=== PATIENT | male | born 1945 | race Caucasian/White ===

== ENCOUNTER 2020-12-14 21:21 | Emergency (ER) | payer MEDICARE, OTHER ==
--- NOTE | 2020-12-14 23:31 | EDPHYS ---
Physician Documentation [facility] Name: Toni Aguirre Age: 75 yrs Sex: Male : 1945 Arrival Date: 12/14/2020 Time: 21:22 Bed 16 Private MD: Ned Davis T ED Physician David Smith HPI: 12/14 23:33 This 75 yrs old Male presents to ER via Ambulatory with complaints of FISH pm1 HOOK IN FINGER. 23:33 Onset: The symptoms/episode began/occurred just prior to arrival, today. Associated pm1 signs and symptoms: Pertinent negatives: numbness tingling to finger. Decreased range of motion. Modifying factors: The patient symptoms are alleviated by nothing, the patient symptoms are aggravated by movement. The patient has not experienced similar symptoms in the past. The patient has not recently seen a physician. Fishing for [place] in [place]. Accidentally hooked finger while removing the fish from the hook. Historical: - Allergies: 22:05 PENICILLINS; em - PMHx: 22:05 colon cancer; Hyperlipidemia; Hypertension; em - PSHx: 22:05 colon resection; em - Immunization history:: Adult Immunizations not up to date. - Social history:: Smoking status: Patient denies any tobacco usage or history of. ROS: 23:33 Constitutional: Negative for fever, chills, and weight loss. pm1 23:33 Cardiovascular: Negative for chest pain, palpitations, and edema, Respiratory: Negative for shortness of breath, cough, wheezing, and pleuritic chest pain. 23:33 MS/extremity: Positive for puncture, of the left index finger, Negative for decreased range of motion, deformity. 23:33 Skin: Positive for puncture, of the left index finger. 23:33 All other systems are negative. Exam: 23:33 Constitutional: This is a well developed, well nourished patient who is awake, alert, pm1 and in no acute distress. Head/Face: Normocephalic, atraumatic. 23:33 Eyes: Exam is negative for acute changes, Extraocular movements: intact throughout, Conjunctiva: no acute changes, no injection. 23:33 ENT: Exam is negative for acute changes, Mouth: Lips: normal, Oral mucosa: normal, pink and intact, moist. 23:33 Cardiovascular: Exam negative for acute changes, Rate: normal, Rhythm: regular, Pulses: no pulse deficits are appreciated. 23:33 Respiratory: Exam negative for acute changes, respiratory distress, shortness of breath. 23:33 Musculoskeletal/extremity: Extremities: grossly normal except: noted in the left index finger: puncture, There is no evidence of decreased ROM, deformity, ROM: full active range of motion, in the left hand and left index finger, Circulation is intact in all extremities. the left hand and left index finger Sensation intact. 23:33 Skin: Appearance: normal except for affected area, injury, puncture(s), of the left index finger. 23:33 Neuro: Exam negative for acute changes, Orientation: is normal, Motor: is normal, moves all fours. Vital Signs: 22:02 BP 183 / 58; Pulse 62; Resp 16; Temp 97.7; Pulse Ox 99% on R/A; Weight 104.33 kg; em Height 6 ft. 0 in. (182.88 cm); Pain 0/10; 22:14 BP 167 / 70; Pulse 58; Resp 16 S; Pulse Ox 98% on R/A; Pain 0/10; bb 23:10 BP 137 / 71; Pulse 55; Resp 14 S; Pulse Ox 96% on R/A; bb 22:02 Body Mass Index 31.19 (104.33 kg, 182.88 cm) em Procedures: 23:53 Foreign Body Removal: a fishhook, from the left left index finger, by hook pushed pm1 through and brent cut. Dressinx4s were used to dress the wound, The patient tolerated the removal well. MDM: 22:57 Patient medically screened. pm1 23:30 Data reviewed: vital signs. Data interpreted: Pulse oximetry: on room air is 96 %. pm1 Interpretation: normal. Counseling: I had a detailed discussion with the patient and/or guardian regarding: the historical points, exam findings, and any diagnostic results supporting the discharge/admit diagnosis, radiology results, the need for outpatient follow up, a hand specialist, to return to the emergency department if symptoms worsen or persist or if there are any questions or concerns that arise at home. Administered Medications: 23:30 Drug: Lidocaine (1 %) 5 ml {Note: adminstered by Quan Beavers NP to affected area.} bb Volume: 5 ml; Route: Infiltration; 23:53 Follow up: Response: No adverse reaction bb 23:50 Drug: Tetanus-Diphtheria Toxoid Adult 0.5 ml {Program Control Analyst: [employer]. Exp: bb 08/21/2022. Lot #: [id number]. } Route: IM; Site: right deltoid; 23:54 Follow up: Response: No adverse reaction bb 23:50 Drug: Doxycycline 100 mg Route: PO; bb 23:54 Follow up: Response: No adverse reaction bb Disposition: 12/14/20 23:31 Discharged to Home. Impression: Puncture wound with foreign body of left index finger without damage to nail. - Condition is Stable. - Discharge Instructions: Puncture Wound. - Prescriptions for Doxycycline Hyclate 100 mg Oral Tablet - take 1 tablet by ORAL route every 12 hours; 20 tablet. - Medication Reconciliation Form, Thank You Letter, Antibiotic Education, Prescription Opioid Use form. - Follow up: Emergency Department; When: As needed; Reason: Worsening of condition. Follow up: Private Physician; When: 2 - 3 days; Reason: Recheck today's complaints, Continuance of care, Re-evaluation by your physician. Follow up: Mayco Hanson MD; When: 2 - 3 days; Reason: Recheck today's complaints, Continuance of care, Re-evaluation by your physician. - Problem is new. - Symptoms have improved. Addendum: 12/15/2020 08:13 Co-signature as Attending Physician, David Smith MD. p preston Signatures: David Smith MD MD pkl Munoz, Edgar RN Sandi Daniel RN RN bb Marinas, Patrick, JUAN RAMON GRINDER SET UP OPERATOR GEAR TOOL pm1 Corrections: (The following items were deleted from the chart) 12/14 23:57 23:31 12/14/2020 23:31 Discharged to Home. Impression: Puncture wound with foreign body bb of left index finger without damage to nail. Condition is Stable. Forms are Medication Reconciliation Form, Thank You Letter, Antibiotic Education, Prescription Opioid Use. Follow up: Emergency Department; When: As needed; Reason: Worsening of condition. Follow up: Private Physician; When: 2 - 3 days; Reason: Recheck today's complaints, Continuance of care, Re-evaluation by your physician. Follow up: Mayco Hanson; When: 2 - 3 days; Reason: Recheck today's complaints, Continuance of care, Re-evaluation by your physician. Problem is new. Symptoms have improved. pm1
--- NOTE | 2020-12-14 23:31 | ER ---
Nurse's Notes [facility] Name: Toni Aguirre Age: 75 yrs Sex: Male : 1945 Arrival Date: 12/14/2020 Time: 21:22 Bed 16 Private MD: Ned Davis T Diagnosis: Puncture wound with foreign body of left index finger without damage to nail Presentation: 12/14 22:02 Chief complaint: Patient states: was fishing and had fish hook go thru the LEFT index em finger, tetanus shot was 6 years ago. Coronavirus screen: Client denies travel out of the [place] in the last 14 days. Ebola Screen: Patient negative for fever greater than or equal to 101.5 degrees Fahrenheit, and additional compatible Ebola Virus Disease symptoms Patient denies exposure to infectious person. Patient denies travel to an Ebola-affected area in the 21 days before illness onset. No symptoms or risks identified at this time. Initial Sepsis Screen: Does the patient meet any 2 criteria? Does the patient have a suspected source of infection? No. Patient's initial sepsis screen is negative. Risk Assessment: Do you want to hurt yourself or someone else? Patient reports no desire to harm self or others. Onset of symptoms was December 14, 2020. 22:02 Method Of Arrival: Ambulatory em 22:02 Acuity: ERICA 4 em Historical: - Allergies: 22:05 PENICILLINS; em - PMHx: 22:05 colon cancer; Hyperlipidemia; Hypertension; em - PSHx: 22:05 colon resection; em - Immunization history:: Adult Immunizations not up to date. - Social history:: Smoking status: Patient denies any tobacco usage or history of. Screenin:14 Abuse screen: Denies threats or abuse. Nutritional screening: No deficits noted. bb Tuberculosis screening: No symptoms or risk factors identified. Fall Risk None identified. Assessment: 22:14 General: Appears in no apparent distress. Behavior is calm, cooperative. Pain: Denies bb pain. Neuro: Level of Consciousness is awake, alert, obeys commands, Oriented to person, place, time, situation. Cardiovascular: No deficits noted. Respiratory: Respiratory effort is even, unlabored, Respiratory pattern is regular. GI: No signs and/or symptoms were reported involving the gastrointestinal system. Derm: Skin is pink, warm \T\ dry. Musculoskeletal: Circulation, motion, and sensation intact. Reports fishhook in left forefinger. 23:10 Reassessment: No changes from previously documented assessment. pt awaiting ED provider bb evaluation. 23:30 Reassessment: Quan Beavers SLEEVE TURNER at bedside for removal of fishhook pt tolerated bb procedure well and verbalized understanding of and agrees to plan of care discharge instructions given pt ambulated with steady gait to exit accompanied by spouse. Vital Signs: 22:02 BP 183 / 58; Pulse 62; Resp 16; Temp 97.7; Pulse Ox 99% on R/A; Weight 104.33 kg; em Height 6 ft. 0 in. (182.88 cm); Pain 0/10; 22:14 BP 167 / 70; Pulse 58; Resp 16 S; Pulse Ox 98% on R/A; Pain 0/10; bb 23:10 BP 137 / 71; Pulse 55; Resp 14 S; Pulse Ox 96% on R/A; bb 22:02 Body Mass Index 31.19 (104.33 kg, 182.88 cm) em ED Course: 21:22 Patient arrived in ED. es 21:22 Ned Davis MD is Private Physician. es 22:04 Triage completed. em 22:05 Arm band placed on. em 22:14 Sandi Mercado, MAJOR is Primary Nurse. bb 22:14 Patient has correct armband on for positive identification. Bed in low position. Call bb light in reach. Adult w/ patient. Pulse ox on. NIBP on. 22:36 David Smith MD is Attending Physician. pkl 22:57 [facility]. pm1 22:57 David Smith MD is Attending Physician. pm1 23:31 Mayco Hanson MD is Referral Physician. pm1 23:56 removal of fishhook from left forefinger. Patient did not have IV access during this bb emergency room visit. Dressings: Band aid triple antibiotic ointment applied. 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 Exp: bb 08/21/2022. Lot #: [id number]. } Route: IM; Site: right deltoid; 23:54 Follow up: Response: No adverse reaction bb 23:50 Drug: Doxycycline 100 mg Route: PO; bb 23:54 Follow up: Response: No adverse reaction bb Outcome: 23:31 Discharge ordered by . pm1 23:57 Discharged to home ambulatory, with family. bb 23:57 Condition: stable 23:57 Discharge instructions given to patient, Instructed on discharge instructions, follow up and referral plans. medication usage, wound care, Demonstrated understanding of instructions, follow-up care, medications, wound care, Prescriptions given X 1. 23:57 Patient left the ED. bb Signatures: David Smith MD MD pkl Salyer, Edna es Munoz, Edgar, RN RN Sandi Rodriguez RN RN Quan Pitt, JUAN RAMON SLEEVE TURNER pm1
[2020-12-14] MEDS ORDERED: LIDOCAINE 1% MPF 5 ML VIAL ONE (23:37)
[2020-12-15] MEDS ORDERED: DOXYCYCLINE 100 MG CAP PO ONE (00:03)
[2020-12-15] MEDS ORDERED: TETANUS & DIPHTHERIA TOX,ADULT 0.5 ML VIAL ONE (00:03)
[2020-12-15 00:32] VITALS: TEMP 97.7
[2020-12-15 00:35] VITALS: BP 137/71; O2SAT 96
== END 2020-12-14 23:57 | disposition home or self-care (01) ==
LOC: ER 21:21
DX: S61.241A Puncture wound with foreign body of left index finger without damage to nail, initial encounter (principal); I10 Essential (primary) hypertension; Z23 Encounter for immunization; Z88.0 Allergy status to penicillin
CPT/HCPCS: 90471; 99283

== ENCOUNTER 2021-10-26 18:17 | Emergency (ER) | payer OTHER ==
[2021-10-26 19:02] LABS: Hematocrit 42.1 % (39.6-49.0); Lymphocytes % 35.2 % (15.3-44.8); MPV 8.8 fL (7.6-11.3); RBC Red Blood Cell Count 4.57 M/uL (4.33-5.43)
[2021-10-26 19:06] LABS: Protime INR 1.08
[2021-10-26 19:20] LABS: Potassium 3.7 mmol/L (3.5-5.1); Troponin High Sensitivity 5.5 pg/mL (<58.9)
--- NOTE | 2021-10-26 20:06 | RAD REPORT ---
EXAM DESCRIPTION: RAD - Chest Single View - 10/26/2021 8:01 pm CLINICAL HISTORY: dizzy Chest pain. COMPARISON: Chest Single View dated 12/13/2015; CHEST PA AND LAT 2 VIEW dated 10/01/2007 FINDINGS: Portable technique limits examination quality. The lungs are grossly clear. The heart is normal in size. No displaced fractures. IMPRESSION: No acute intrathoracic process suspected.
--- NOTE | 2021-10-26 20:10 | RAD REPORT ---
EXAM DESCRIPTION: CT - Head Brain Wo Cont - 10/26/2021 8:02 pm CLINICAL HISTORY: sudden onset dizziness/vertigo Headache, drowsiness COMPARISON: Head Brain Wo Cont dated 12/13/2015 TECHNIQUE: All CT scans are performed using dose optimization technique as appropriate and may inclu de automated exposure control or mA/KV adjustment according to patient size. FINDINGS: No intracranial hemorrhage, hydrocephalus or extra-axial fluid collection.No areas of brai n edema or evidence of midline shift. Chronic sphenoid sinusitis is present. The calvarium is intact. IMPRESSION: No acute intracranial abnormality.
--- NOTE | 2021-10-26 20:40 | ER ---
Nurse's Notes [facility] Name: Toni Aguirre Age: 76 yrs Sex: Male : 1945 Arrival Date: 10/26/2021 Time: 18:20 Bed 2 Private MD: Ned Davis T Diagnosis: Other peripheral vertigo Presentation: 10/26 18:33 Ebola Screen: Patient denies travel to an Ebola-affected area in the 21 days before ll1 illness onset. 18:33 Acuity: ERICA 3 ll1 18:38 Chief complaint: Patient states: I started having vertigo 45min PULLER THROUGH. It worsens when I jb4 stand up. Coronavirus screen: At this time, the client does not indicate any symptoms associated with coronavirus-19. Initial Sepsis Screen: Does the patient meet any 2 criteria? No. Patient's initial sepsis screen is negative. Does the patient have a suspected source of infection? No. Patient's initial sepsis screen is negative. Risk Assessment: Do you want to hurt yourself or someone else? Patient reports no desire to harm self or others. Onset of symptoms was October 26, 2021. Transition of care: patient was not received from another setting of care. 18:38 Method Of Arrival: Wheelchair jb4 Historical: - Allergies: 18:32 PENICILLINS; ll1 - PMHx: 18:32 colon cancer; Hyperlipidemia; Hypertension; ll1 - Immunization history:: Client reports receiving the 2nd dose of the Covid vaccine. - Social history:: Smoking status: Patient denies any tobacco usage or history of. - Family history:: not pertinent. - Hospitalizations: : No recent hospitalization is reported. Screenin:03 Abuse screen: Denies threats or abuse. Nutritional screening: No deficits noted. ll1 Tuberculosis screening: No symptoms or risk factors identified. 21:37 Fall Risk None identified. al4 Assessment: 18:40 General: Appears in no apparent distress. Behavior is cooperative, appropriate for age. ll1 Pain: Denies pain. Neuro: Reports dizziness. 21:00 General: Appears in no apparent distress. comfortable, Behavior is calm, cooperative, al4 denies dizziness at this time . Pain: Denies pain. Neuro: Level of Consciousness is awake, alert, obeys commands, Oriented to person, place, time, situation, Speech is normal, Facial symmetry appears normal. Cardiovascular: Capillary refill < 3 seconds Patient's skin is warm and dry. Respiratory: Airway is patent Respiratory effort is unlabored, Respiratory pattern is regular, symmetrical. GI: No signs and/or symptoms were reported involving the gastrointestinal system. : No signs and/or symptoms were reported regarding the genitourinary system. EENT: No signs and/or symptoms were reported regarding the EENT system. Derm: No signs and/or symptoms reported regarding the dermatologic system. Musculoskeletal: Circulation, motion, and sensation intact. patient ambulating well. Vital Signs: 18:38 BP 180 / 76; Pulse 51; Resp 16; Pulse Ox 100% on R/A; Weight 92.99 kg (R); Height 6 ft. jb4 0 in. (182.88 cm) (R); Pain 0/10; 21:36 BP 147 / 62; Pulse 54; Resp 16 S; Pulse Ox 98% on R/A; al4 18:38 Body Mass Index 27.80 (92.99 kg, 182.88 cm) jb4 ED Course: 18:20 Patient arrived in ED. mr 18:20 Ned Davis MD is Private Physician. mr 18:32 Jaime Willett, MAJOR is Primary Nurse. ll1 18:32 Arm band placed on Patient placed in an exam room, on a stretcher. ll1 18:33 Triage completed. ll1 18:45 Inserted saline lock: 20 gauge in right antecubital area, using aseptic technique. ll1 19:00 Richar Piper MD is Attending Physician. rn 19:03 Patient has correct armband on for positive identification. Bed in low position. Call ll1 light in reach. Side rails up X 1. Client placed on continuous cardiac and pulse oximetry monitoring. NIBP monitoring applied. 20:03 XRAY Chest (1 view) In Process Unspecified. EDMS 20:03 CT Head Brain wo Cont In Process Unspecified. EDMS 21:36 No provider procedures requiring assistance completed. IV discontinued, intact, al4 bleeding controlled, No redness/swelling at site. Pressure dressing applied. Administered Medications: No medications were administered Outcome: 20:40 Discharge ordered by MD. rn 21:36 Discharged to home ambulatory, with family. al4 21:36 Condition: stable 21:36 Discharge instructions given to patient, family, Instructed on discharge instructions, follow up and referral plans. medication usage, Demonstrated understanding of instructions, follow-up care, medications, Prescriptions given X 2. 21:37 Patient left the ED. al4 Signatures: Dispatcher [employer] Sierra Gutierrez Roman, MD MD rn Bryson, James, RN RN jb4 Jaime Willett RN RN ll1 Bairon Prieto4
--- NOTE | 2021-10-26 20:40 | EDPHYS ---
Physician Documentation [facility] Name: Toni Aguirre Age: 76 yrs Sex: Male : 1945 Arrival Date: 10/26/2021 Time: 18:20 Bed 2 Private MD: Ned Davis T ED Physician Richar Piper HPI: 10/26 20:23 This 76 yrs old Male presents to ER via Wheelchair with complaints of Vertigo. rn 20:23 The patient presents with dizziness, vertigo. Onset: The symptoms/episode rn began/occurred today. Modifying factors: The symptoms are alleviated by holding head still, valium, the symptoms are aggravated by movement of head, standing up, changing position. Associated signs and symptoms: Pertinent negatives: abdominal pain, chest pain, focal weakness, seizure, shortness of breath, syncope. Severity of symptoms: At their worst the symptoms were moderate in the emergency department the symptoms have improved. The patient has experienced similar episodes in the past. The patient has not recently seen a physician. Pt reports "vertigo again", has had vertigo now 5 times, no focal neurological complaints. Reports identical to previous episodes. Took valium prior to arrival and feels much better. NO headache. NO chest pain or palpitations. No syncope. Currently denies dizziness. . Historical: - Allergies: 18:32 PENICILLINS; ll1 - PMHx: 18:32 colon cancer; Hyperlipidemia; Hypertension; ll1 - Immunization history:: Client reports receiving the 2nd dose of the Covid vaccine. - Social history:: Smoking status: Patient denies any tobacco usage or history of. - Family history:: not pertinent. - Hospitalizations: : No recent hospitalization is reported. ROS: 20:23 Constitutional: Negative for fever, chills, and weight loss, Eyes: Negative for injury, rn pain, redness, and discharge, Neck: Negative for injury, pain, and swelling, Cardiovascular: Negative for chest pain, palpitations, and edema, Respiratory: Negative for shortness of breath, cough, wheezing, and pleuritic chest pain, Abdomen/GI: Negative for abdominal pain, diarrhea, and constipation, Back: Negative for injury and pain, MS/Extremity: Negative for injury and deformity, Skin: Negative for injury, rash, and discoloration, Neuro: Negative for headache, weakness, numbness, tingling, and seizure. Exam: 20:23 Constitutional: This is a well developed, well nourished patient who is awake, alert, rn and in no acute distress. Head/Face: Normocephalic, atraumatic. Eyes: Pupils equal round and reactive to light, extra-ocular motions intact. Periorbital areas with no swelling, redness, or edema. Cardiovascular: Braadycardic, regular. No pulse deficits. Respiratory: No increased work of breathing, no retractions or nasal flaring. Abdomen/GI: Soft, non-tender Skin: Warm, dry MS/ Extremity: Pulses equal, no cyanosis. Neuro: Awake and alert, GCS 15, oriented to person, place, time, and situation. Cranial nerves II-XII grossly intact. Motor strength 5/5 in all extremities. Sensory grossly intact. Cerebellar exam normal. Vital Signs: 18:38 BP 180 / 76; Pulse 51; Resp 16; Pulse Ox 100% on R/A; Weight 92.99 kg (R); Height 6 ft. jb4 0 in. (182.88 cm) (R); Pain 0/10; 21:36 BP 147 / 62; Pulse 54; Resp 16 S; Pulse Ox 98% on R/A; al4 18:38 Body Mass Index 27.80 (92.99 kg, 182.88 cm) jb4 MDM: 19:00 Patient medically screened. rn 20:23 Differential diagnosis: cardiac arrhythmia, generalized weakness, hypovolemia, rn idiopathic dizziness, TIA, vertigo. Data reviewed: vital signs, nurses notes, lab test result(s), EKG, radiologic studies, CT scan, and as a result, I will discharge patient. Counseling: I had a detailed discussion with the patient and/or guardian regarding: the historical points, exam findings, and any diagnostic results supporting the discharge/admit diagnosis, lab results, radiology results, the need for outpatient follow up, to return to the emergency department if symptoms worsen or persist or if there are any questions or concerns that arise at home. Response to treatment: the patient's symptoms have markedly improved after treatment, and as a result, I will discharge patient. Special discussion: I discussed with the patient/guardian in detail that at this point there is no indication for admission to the hospital. It is understood, however, that if the symptoms persist or worsen the patient needs to return immediately for re-evaluation. Based on the history and exam findings, there is no indication for further emergent testing or inpatient evaluation. I discussed with the patient/guardian the need to see the primary care provider for further evaluation of the symptoms. ED course: No acute findings in evaluation, marked improvement after valium, will dc home with prn zofran/meclizine. . 10/26 18:53 Order name: Basic Metabolic Panel; Complete Time: 20:12 [facility] 10/26 18:53 Order name: CBC with Diff; Complete Time: 19:20 [facility] 10/26 18:53 Order name: PT-INR; Complete Time: 19:20 [facility] 10/26 18:53 Order name: Troponin HS; Complete Time: 20:12 [facility] 10/26 18:53 Order name: XRAY Chest (1 view); Complete Time: 20:12 [facility] 10/26 19:22 Order name: CT Head Brain wo Cont; Complete Time: 20:12 rn 10/26 18:53 Order name: EKG; Complete Time: 18:53 [facility] 10/26 18:53 Order name: Cardiac monitoring; Complete Time: 18:53 [facility] 10/26 18:53 Order name: EKG - Nurse/Tech; Complete Time: 18:53 [facility] 10/26 18:53 Order name: IV Saline Lock; Complete Time: 18:53 [facility] 10/26 18:53 Order name: Labs collected and sent; Complete Time: 18:53 1 10/26 18:53 Order name: O2 Per Protocol; Complete Time: 18:53 [facility] 10/26 18:53 Order name: O2 Sat Monitoring; Complete Time: 18:53 ll1 Administered Medications: No medications were administered Disposition Summary: 10/26/21 20:40 Discharge Ordered Location: Home rn Problem: an acute exacerbation rn Symptoms: have improved rn Condition: Stable rn Diagnosis - Other peripheral vertigo rn Followup: rn - With: Private Physician - When: As needed - Reason: Recheck today's complaints, Re-evaluation by your physician Discharge Instructions: - Discharge Summary Sheet rn - Vertigo rn Forms: - Medication Reconciliation Form rn - Thank You Letter rn - Antibiotic corporate attorney - Prescription Opioid Use rn Prescriptions: - Meclizine 25 mg Oral Tablet - take 1 tablet by ORAL route every 8 hours As needed; 30 tablet; Refills: 0, rn Product Selection Permitted - ondansetron 4 mg Oral tablet,disintegrating - take 1 tablet by ORAL route every 8 hours As needed; 15 tablet; Refills: 0, rn Product Selection Permitted Signatures: Dispatcher [employer] Richar Cowan MD MD rn BrennonJaime RN RN ll1
[2021-10-26 22:10] VITALS: BP 147/62; O2SAT 98
--- NOTE | 2021-10-27 07:30 | EKG ---
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
== END 2021-10-26 21:37 | disposition home or self-care (01) ==
LOC: ER 18:17
DX: H81.399 Other peripheral vertigo, unspecified ear (principal); I10 Essential (primary) hypertension; Z85.038 Personal history of other malignant neoplasm of large intestine; Z88.0 Allergy status to penicillin
CPT/HCPCS: 36415; 70450; 71045; 80048; 84484; 85025; 85610; 93005; 99283

== ENCOUNTER 2021-12-10 12:35 | Inpatient (IN) | payer OTHER ==
[2021-12-10] MEDS ORDERED: NA CHLORIDE 0.9% 1,000 ML ONE (13:50)
[2021-12-10] MEDS ORDERED: ONDANSETRON 4 MG/2 ML VIAL ONE (13:50)
[2021-12-10] MEDS ORDERED: MORPHINE 4 MG/ML SYR ONE (13:50)
[2021-12-10 13:51] LABS: Absolute Lymphocytes (CBC) 2.8 K/uL (0.7-4.9); Hematocrit 45.9 % (39.6-49.0); Lymphocytes % 25.2 % (15.3-44.8); MCV 91.3 fL (80-100); MPV 8.4 fL (7.6-11.3); RBC Red Blood Cell Count 5.03 M/uL (4.33-5.43)
[2021-12-10 14:13] LABS: Albumin 4.1 g/dL (3.4-5.0); Bilirubin Direct 0.2 mg/dL (0-0.2); Bilirubin Total 0.9 mg/dL (0.2-1.0); Potassium 3.8 mmol/L (3.5-5.1)
--- NOTE | 2021-12-10 14:20 | RAD REPORT ---
EXAM DESCRIPTION: RAD - Chest Single View - 12/10/2021 1:40 pm CLINICAL HISTORY: PAIN COMPARISON: Portable 10/26/2021 TECHNIQUE: AP portable chest image was obtained 12/10/2021 1:40 pm . FINDINGS: No new mass or consolidation. Chronic interstitial lung pattern is present. This is not ponce bstantially different from the comparison. Severity of chronic disease could mask a mild interstitial edema or infiltrate. Heart and vasculature are normal. No measurable pleural effusion and no pneumothorax. No acute bony abnormality seen. No acute aortic findings suspected. IMPRESSION: No acute cardiopulmonary process. Chronic interstitial pattern is stable but could potentially mask a mild edema or infiltrate.
[2021-12-10] MEDS ORDERED: FENTANYL CITR 100 MCG/2 ML ONE (14:24)
--- NOTE | 2021-12-10 14:59 | RAD REPORT ---
EXAM DESCRIPTION: CT - Abdomen Pelvis W Contrast - 12/10/2021 2:37 pm CLINICAL HISTORY: abdominal pain COMPARISON: CT ABD PELVIS W CONTRAST dated 10/03/2007 TECHNIQUE: Biphasic, helical CT imaging of the abdomen and pelvis was performed following 100 ml non -ionic IV contrast. No oral contrast administered. All CT scans are performed using dose optimization technique as appropriate and may include automated exposure control or mA/KV adjustment according to patient size. FINDINGS: No suspicious findings in the lung bases. The liver, spleen, and pancreas show no suspicious findings. A 2.4 cm cyst is present in the subcapsu lar dome medial segment left hepatic lobe. No suspicious liver parenchymal lesion identifiable. No po rtal vein abnormality identifiable. No pancreatic or peripancreatic abnormality. Spleen is unremarkable. Symmetric renal function is seen with no hydronephrosis or suspicious renal mass. No pyelonephritis o r acute parenchymal process. Multiple simple cysts of the left kidney are present up to 4 cm in size. These are enlarged and more numerous than the remote 2007 comparison. No worrisome renal parenchymal process. Partially filled urinary bladder unremarkable. No adrenal abnormalities. Stomach is distended by a large quantity of food. No gastric wall thickening or mass identifiable. Du odenum and jejunum show no suspicious findings. There are multiple loops of mid and distal ileum show ing prominent circumferential wall thickening and edema. Loops are dilated up to 3.7 cm. There is sig nificant congestion or edema of the mesenteric fat along the vascular pedicle to the involved bowel l oops. The terminal ileum is spared. There is focal narrowing of the small bowel at the proximal porti on of this abnormal ileum. An infectious/inflammatory ileitis is possible. Small bowel obstruction fr om internal hernia or adhesion would be a consideration as well. No mass or bulky lymphadenopathy. F at extends into the origin of the right inguinal canal. Superior and inferior mesenteric arteries opacify normally. No origins stenoses. Inferior mesenteric artery is patent as well. No suspicious bony findings. IMPRESSION: Multiple abnormal loops of mid and distal ileum, sparing the terminal ileum, showing dil ation, wall thickening and edema. There is significant edema in the mesenteric fat along the vascular pedicle supplying this portion of bowel. The involved loops of small bowel an associated mesentery shows findings concerning for obstruction a nd internal hernia. Nonobstructed ileitis is possible as well.
--- NOTE | 2021-12-10 15:20 | ER ---
Nurse's Notes [facility] Name: Toni Aguirre Age: 76 yrs Sex: Male : 1945 Arrival Date: 12/10/2021 Time: 12:37 Bed 6 Private MD: Diagnosis: Small bowel obstruction Presentation: 12/10 13:33 Chief complaint: Patient states: Sudden abdominal pain started about 1130, N/V, pt jl7 noted to be diaphoretic in triage. Coronavirus screen: At this time, the client does not indicate any symptoms associated with coronavirus-19. Ebola Screen: No symptoms or risks identified at this time. Initial Sepsis Screen: Does the patient meet any 2 criteria? No. Patient's initial sepsis screen is negative. Does the patient have a suspected source of infection? No. Patient's initial sepsis screen is negative. Risk Assessment: Do you want to hurt yourself or someone else? Patient reports no desire to harm self or others. Onset of symptoms was December 10, 2021 at 11:30. 13:33 Method Of Arrival: Wheelchair jl7 13:33 Acuity: ERICA 2 jl7 Historical: - Allergies: 13:34 PENICILLINS; jl7 - PMHx: 13:34 colon cancer; Hyperlipidemia; Hypertension; jl7 - Immunization history:: Adult Immunizations unknown. - Social history:: Smoking status: unknown. Screenin:23 Abuse screen: Denies threats or abuse. Nutritional screening: No deficits noted. jd3 Tuberculosis screening: No symptoms or risk factors identified. Fall Risk IV access (20 points). Ambulatory Aid- None/Bed Rest/Nurse Assist (0 pts). Gait- Weak (10 pts.). Mental Status- Oriented to own ability (0 pts). Total Martinez Fall Scale indicates Low Risk Score (25-44 pts). Fall prevention measures have been instituted. Side Rails Up X 2 Placed close to Nursing Station Frequent Obs/Assesments occuring. Assessment: 14:30 General: Appears uncomfortable, Behavior is cooperative, appropriate for age, agitated, jd3 Reports fatigue for 12-24 hours. Pain: Complains of pain in abdomen Quality of pain is described as sharp, tender. Neuro: Hernandez Agitation-Sedation Scale (RASS): 0 - Alert and Calm Level of Consciousness is awake, alert, obeys commands, Oriented to person, place, time, situation. Cardiovascular: Capillary refill < 3 seconds Patient's skin is warm and dry. Rhythm is sinus bradycardia. Respiratory: Airway is patent Respiratory effort is even, unlabored, Respiratory pattern is regular, symmetrical, Denies cough, shortness of breath. GI: Abdomen is round Abd is soft X 4 quads Abdomen is tender to palpation in right upper quadrant and right lower quadrant Reports lower abdominal pain, upper abdominal pain, nausea, vomiting. : No signs and/or symptoms were reported regarding the genitourinary system. EENT: No signs and/or symptoms were reported regarding the EENT system. Derm: Skin is intact, Skin is diaphoretic, Skin is pale, Skin temperature is warm. Musculoskeletal: Circulation, motion, and sensation intact. Range of motion:. 15:20 Reassessment: No changes from previously documented assessment. Patient and/or family jd3 updated on plan of care and expected duration. Pain level reassessed. Patient is alert, oriented x 3, equal unlabored respirations, skin warm/dry/pink. 16:39 Reassessment: Patient appears in no apparent distress at this time. Patient and/or jd3 family updated on plan of care and expected duration. Pain level reassessed. Patient is alert, oriented x 3, equal unlabored respirations, skin warm/dry/pink. family at bedside. hospitalist at bedside discussing plan of care. 17:39 Reassessment: Patient appears in no apparent distress at this time. Patient and/or jd3 family updated on plan of care and expected duration. Pain level reassessed. Patient is alert, oriented x 3, equal unlabored respirations, skin warm/dry/pink. pt reports pain has been relieved Patient denies pain at this time. Patient states feeling better. Patient states symptoms have improved. 18:53 Reassessment: Patient appears in no apparent distress at this time. No changes from jd3 previously documented assessment. Patient and/or family updated on plan of care and expected duration. Pain level reassessed. Patient is alert, oriented x 3, equal unlabored respirations, skin warm/dry/pink. awaiting admission Patient states feeling better. 19:42 Reassessment: attempted to call report to floor, nurse unavailable. 5 Vital Signs: 13:33 BP 173 / 78; Pulse 40; Resp 20; Temp 97; Pulse Ox 100% ; Pain 10/10; jl7 15:20 BP 191 / 112; Pulse 46; Resp 20 S; Pulse Ox 100% on R/A; jd3 16:39 BP 182 / 82; Pulse 48; Resp 19 S; Pulse Ox 100% on R/A; jd3 17:42 BP 131 / 90; Pulse 79; Resp 18 S; Pulse Ox 95% on R/A; jd3 18:54 BP 107 / 74; Pulse 79; Resp 18 S; Pulse Ox 96% on R/A; jd3 19:57 BP 106 / 73; Pulse 79; Resp 13; Pulse Ox 97% on R/A; sm5 ED Course: 12:37 Patient arrived in ED. cl3 13:22 Felix Azevedo PA is PHCP. cp 13:22 Richar Piper MD is Attending Physician. cp 13:26 PHCP role handed off by Felix Azevedo PA kb 13:26 Lisa Stanley FNP-C is PHCP. kb 13:34 Triage completed. jl7 13:34 Arm band placed on right wrist. jl7 13:41 XRAY Chest (1 view) In Process Unspecified. EDMS 13:42 Paula Hutchinson, MAJOR is Primary Nurse. jl7 14:39 CT Abd/Pelvis - IV Contrast Only In Process Unspecified. EDMS 15:19 Morgan Piper MD is Hospitalizing Provider. kb 15:24 Patient has correct armband on for positive identification. Placed in gown. Bed in low jd3 position. Call light in reach. Side rails up X2. Client placed on continuous cardiac and pulse oximetry monitoring. NIBP monitoring applied. environmental monitoring technician on. Pulse ox on. NIBP on. 15:27 Primary Nurse role handed off by Paula Hutchinson, MAJOR jd3 15:27 Alex Fofana RN is Primary Nurse. jd3 16:38 NGT: inserted 16 Fr. via left nare. verified placement of air over stomach, verified jd3 return of gastric contents, Patient tolerated well. 16:49 XRAY Chest (1 view) In Process Unspecified. EDMS 17:30 NGT: to intermittent suction. Returned gastric contents. jd3 19:57 No provider procedures requiring assistance completed. Patient admitted, IV remains in sm5 place. Administered Medications: 13:50 Drug: morphine 4 mg Route: IVP; Infused Over: 4 mins; Site: right antecubital; jl7 14:50 Follow up: Response: No adverse reaction; RASS: Alert and Calm (0) jd3 13:50 Drug: Zofran (Ondansetron) 4 mg Route: IVP; Site: right antecubital; jl7 14:50 Follow up: Response: No adverse reaction jd3 13:51 Drug: NS 0.9% 1000 ml Route: IV; Rate: 1000 ml; Site: right antecubital; jl7 14:50 Follow up: Response: No adverse reaction; IV Status: Completed infusion jd3 14:20 Drug: fentaNYL (PF) 50 mcg Route: IVP; Site: right antecubital; jd3 15:20 Follow up: Response: No adverse reaction; RASS: Alert and Calm (0) jd3 15:20 Drug: Dilaudid (HYDROmorphone) 1 mg Route: IVP; Site: right antecubital; jd3 17:51 Follow up: Response: No adverse reaction; RASS: Alert and Calm (0) jd3 15:38 Drug: Flagyl (metroNIDAZOLE) 500 mg Volume: 100 ml; Route: IVPB; Rate: 200 ml/hr; jd3 Infused Over: 30 mins; Site: right antecubital; 16:30 Follow up: Response: No adverse reaction; IV Status: Completed infusion jd3 16:26 Drug: Cipro (ciprofloxacin) 400 mg Volume: 200 ml; Route: IVPB; Infused Over: 60 mins; jd3 Site: right antecubital; 17:20 Follow up: Response: No adverse reaction; IV Status: Completed infusion jd3 16:52 Drug: Dilaudid (HYDROmorphone) 1 mg Route: IVP; Site: right antecubital; jd3 17:52 Follow up: Response: No adverse reaction; RASS: Alert and Calm (0) jd3 16:52 Drug: Zofran (Ondansetron) 4 mg Route: IVP; Site: right antecubital; jd3 17:52 Follow up: Response: No adverse reaction jd3 Medication: 15:23 VIS not applicable for this client. jd3 Outcome: 15:20 Decision to Hospitalize by Provider. kb 19:57 Admitted to Med/surg accompanied by tech, via stretcher, with chart. sm5 19:57 Condition: stable 19:57 Instructed on the need for admit. 19:58 Patient left the ED. sm5 Signatures: Dispatcher [employer] EDLisa Rubio, KELVIN GOREP-Felix Escobar PA PA cp Leal, Jahala RN RN jl7 Alex Fofana RN RN jd3 Nestor Willett cl3 Yaquelin Serrano RN RN sm5 Corrections: (The following items were deleted from the chart) 17:42 17:15 NGT: to intermittent suction. Returned gastric contents. rudy grant 17:51 16:20 Response: No adverse reaction rudy grant
--- NOTE | 2021-12-10 15:20 | EDPHYS ---
Physician Documentation [facility] Name: Toni Aguirre Age: 76 yrs Sex: Male : 1945 Arrival Date: 12/10/2021 Time: 12:37 Bed 6 Private MD: ED Physician Richar Piper HPI: 12/10 15:12 This 76 yrs old Male presents to ER via Wheelchair with complaints of Nausea, Abdominal kb Pain. 15:12 The patient presents with abdominal pain that is diffuse. Onset: The symptoms/episode kb began/occurred at 11:30. The symptoms do not radiate. Associated signs and symptoms: Pertinent positives: nausea and vomiting, Pertinent negatives: diarrhea, fever. The symptoms are described as constant. Modifying factors: The symptoms are alleviated by nothing, the symptoms are aggravated by nothing. Severity of pain: At its worst the pain was moderate severe in the emergency department the pain is unchanged. The patient has not experienced similar symptoms in the past. The patient has not recently seen a physician. Pt reports sudden onset of abd pain at 1130 today with nausea and vomiting. Pt is diaphoretic at time of triage and exam. . Historical: - Allergies: 13:34 PENICILLINS; jl7 - PMHx: 13:34 colon cancer; Hyperlipidemia; Hypertension; jl7 - Immunization history:: Adult Immunizations unknown. - Social history:: Smoking status: unknown. ROS: 15:08 Constitutional: Negative for fever, chills, and weight loss. kb 15:08 Abdomen/GI: Positive for abdominal pain, nausea and vomiting, Negative for diarrhea. 15:08 All other systems are negative. Exam: 15:08 Head/Face: Normocephalic, atraumatic. kb 15:08 ENT: Moist Mucous membranes Respiratory: Respirations even and unlabored. No increased work of breathing. Talking in full sentences Skin: Warm, dry with normal turgor. Normal color. MS/ Extremity: Pulses equal, no cyanosis. Neurovascular intact. Full, normal range of motion. Neuro: Awake and alert, GCS 15, oriented to person, place, time, and situation. Moves all extremities. Normal gait. Psych: Awake, alert, with orientation to person, place and time. Behavior, mood, and affect are within normal limits. 15:08 Constitutional: The patient appears alert, awake, in obvious pain. 15:08 Cardiovascular: Rate: normal, Rhythm: regular, Pulses: no pulse deficits are appreciated. 15:08 ECG was reviewed by the Attending Physician. 15:08 Abdomen/GI: Inspection: abdomen appears normal, Bowel sounds: normal, Palpation: soft, in all quadrants, moderate abdominal tenderness, in the epigastric area and right lower quadrant. Vital Signs: 13:33 BP 173 / 78; Pulse 40; Resp 20; Temp 97; Pulse Ox 100% ; Pain 10/10; jl7 15:20 BP 191 / 112; Pulse 46; Resp 20 S; Pulse Ox 100% on R/A; jd3 16:39 BP 182 / 82; Pulse 48; Resp 19 S; Pulse Ox 100% on R/A; jd3 17:42 BP 131 / 90; Pulse 79; Resp 18 S; Pulse Ox 95% on R/A; jd3 18:54 BP 107 / 74; Pulse 79; Resp 18 S; Pulse Ox 96% on R/A; jd3 19:57 BP 106 / 73; Pulse 79; Resp 13; Pulse Ox 97% on R/A; sm5 MDM: 13:24 Patient medically screened. cp 15:11 Data reviewed: vital signs, nurses notes. Data interpreted: Pulse oximetry: on room air kb is 100 %. Interpretation: normal. 15:13 ED course: Pt reports normal heart rate in the 50s. . kb 15:14 ED course: Consulted with Dr. Nolen, will consult on patient, requests NG tube if rn patient throws up, pain meds, abx, and admit to hospitalist. . 15:19 Physician consultation: Morgan Piper MD was contacted at 15:19, regarding admission, kb to the medical/surgical unit. patient's condition, and will see patient in ED. 12/10 13:27 Order name: Basic Metabolic Panel; Complete Time: 14:17 kb 12/10 13:27 Order name: CBC with Diff; Complete Time: 14:00 kb 12/10 13:27 Order name: LFT's; Complete Time: 14:17 kb 12/10 13:27 Order name: Troponin HS; Complete Time: 14:17 kb 12/10 13:59 Order name: Glucose, Ancillary Testing; Complete Time: 14:00 EDMS 12/10 15:55 Order name: SARS-COV-2 RT PCR (Document "Date of Onset" if Symptomatic); Complete Time: eb 18:28 12/10 16:41 Order name: CBC with Automated Diff EDMS 12/10 16:41 Order name: CBC with Automated Diff EDMS 12/10 16:41 Order name: CBC with Automated Diff EDMS 12/10 16:41 Order name: CBC with Automated Diff EDMS 12/10 16:41 Order name: CBC with Automated Diff EDMS 12/10 16:41 Order name: Comprehensive Metabolic Panel EDMS 12/10 16:41 Order name: Comprehensive Metabolic Panel EDMS 12/10 16:41 Order name: Comprehensive Metabolic Panel EDMS 12/10 13:27 Order name: XRAY Chest (1 view); Complete Time: 14:23 kb 12/10 13:35 Order name: CT Abd/Pelvis - IV Contrast Only; Complete Time: 15:03 kb 12/10 16:41 Order name: Comprehensive Metabolic Panel EDMS 12/10 16:41 Order name: Comprehensive Metabolic Panel EDMS 12/10 16:41 Order name: Magnesium EDMS 12/10 16:41 Order name: Magnesium EDMS 12/10 16:41 Order name: Magnesium EDMS 12/10 16:41 Order name: Magnesium EDMS 12/10 16:41 Order name: Magnesium EDMS 12/10 16:42 Order name: Procalcitonin EDMS 12/10 16:46 Order name: XRAY Chest (1 view); Complete Time: 17:20 jd3 12/10 13:27 Order name: EKG; Complete Time: 13:28 kb 12/10 13:27 Order name: Cardiac monitoring; Complete Time: 13:42 kb 12/10 13:27 Order name: EKG - Nurse/Tech; Complete Time: 13:42 kb 12/10 13:27 Order name: IV Saline Lock; Complete Time: 13:42 kb 12/10 13:27 Order name: Labs collected and sent; Complete Time: 13:42 kb 12/10 13:27 Order name: O2 Per Protocol; Complete Time: 13:42 kb 12/10 13:27 Order name: O2 Sat Monitoring; Complete Time: 13:42 kb 12/10 16:26 Order name: NG Tube; Complete Time: 16:38 jd3 12/10 16:38 Order name: CONS Physician Consult EDMS 12/10 16:41 Order name: NPO EDMS EC:08 Rate is 44 beats/min. Rhythm is regular. QRS [place] is Normal. SD interval is prolonged kb at 218 msec. QRS interval is normal at 108 msec. QT interval is normal at 401 msec. Administered Medications: 13:50 Drug: morphine 4 mg Route: IVP; Infused Over: 4 mins; Site: right antecubital; jl7 14:50 Follow up: Response: No adverse reaction; RASS: Alert and Calm (0) jd3 13:50 Drug: Zofran (Ondansetron) 4 mg Route: IVP; Site: right antecubital; jl7 14:50 Follow up: Response: No adverse reaction jd3 13:51 Drug: NS 0.9% 1000 ml Route: IV; Rate: 1000 ml; Site: right antecubital; jl7 14:50 Follow up: Response: No adverse reaction; IV Status: Completed infusion jd3 14:20 Drug: fentaNYL (PF) 50 mcg Route: IVP; Site: right antecubital; jd3 15:20 Follow up: Response: No adverse reaction; RASS: Alert and Calm (0) jd3 15:20 Drug: Dilaudid (HYDROmorphone) 1 mg Route: IVP; Site: right antecubital; jd3 17:51 Follow up: Response: No adverse reaction; RASS: Alert and Calm (0) jd3 15:38 Drug: Flagyl (metroNIDAZOLE) 500 mg Volume: 100 ml; Route: IVPB; Rate: 200 ml/hr; jd3 Infused Over: 30 mins; Site: right antecubital; 16:30 Follow up: Response: No adverse reaction; IV Status: Completed infusion jd3 16:26 Drug: Cipro (ciprofloxacin) 400 mg Volume: 200 ml; Route: IVPB; Infused Over: 60 mins; jd3 Site: right antecubital; 17:20 Follow up: Response: No adverse reaction; IV Status: Completed infusion jd3 16:52 Drug: Dilaudid (HYDROmorphone) 1 mg Route: IVP; Site: right antecubital; jd3 17:52 Follow up: Response: No adverse reaction; RASS: Alert and Calm (0) jd3 16:52 Drug: Zofran (Ondansetron) 4 mg Route: IVP; Site: right antecubital; jd3 17:52 Follow up: Response: No adverse reaction jd3 Disposition: 15:50 Co-signature as Attending Physician, Richar Piper MD. rn Disposition Summary: 12/10/21 15:20 Hospitalization Ordered Hospitalization Status: Observation kb Provider: Morgan Piper Location: Telemetry/MedSurg (observation) kb Condition: Stable kb Problem: new kb Symptoms: are unchanged kb Bed/Room Type: Standard Room Assignment: 220(12/10/21 19:24) cg Diagnosis - Small bowel obstruction kb Forms: - Medication Reconciliation Form kb - SBAR form kb Signatures: Dispatcher [employer] EDMS Lisa Stanley, RETAIL PHARMACY MANAGER-C RETAIL PHARMACY MANAGER-Ckb Richar Piper MD MD rn Felix Azevedo PA PA cp Garcia, Cindy, RN RN Paula Reyes RN RN Alex Kinney RN RN jd3 Corrections: (The following items were deleted from the chart) 19:24 15:20 kb cg
[2021-12-10] MEDS ORDERED: HYDROMORPHONE HCL 1 MG/ML INJ ONE (15:23)
[2021-12-10] MEDS ORDERED: METRONIDAZOLE 500mg IVPB 500 MG/100 ML BAG IV ONE (15:40)
[2021-12-10] MEDS ORDERED: CIPROFLOXACIN 400mg IV 400 MG/200 ML BAG IV ONE (15:40)
[2021-12-10] MEDS ORDERED: ONDANSETRON 4 MG/2 ML VIAL IV PRN (16:37)
[2021-12-10] MEDS ORDERED: HYDROMORPHONE HCL 1 MG/ML INJ IV PRN (16:39)
[2021-12-10] MEDS ORDERED: HYDRALAZINE HCL 20 MG/ML VIAL IV PRN (16:40)
--- NOTE | 2021-12-10 16:45 | P.HP ---
Certification for Inpatient Patient admitted to: Inpatient With expected LOS: >2 Midnights Practitioner: I am a practitioner with admitting privileges, knowledge of patient current condition, hospital course, and medical plan of care. Services: Services provided to patient in accordance with Admission requirements found in Title 42 Section 412.3 of the Code of Federal Regulations Patient History Date of Service: 12/10/21 Reason for admission: SBO vs ileitis History of Present Illness: 76yo M , PMH: HTN, colon cancer s/p resection Presents to ED due to progressively worsening abdominal pain, associated with nausea/vomiting. Symptoms began ~11am. Last BM early this morning and normal. Was in his usual state of health up until this began. Does not recall anything in particular that was out of the ordinary for him in the last week. He has never experienced something like this before. Remote h/o colon cancer s/p 12 inches of colon resection, no recurrence. Last c-scope was ~2 yrs ago, a few polyps were removed. In the ED, mild leukocytosis at 11, CT: distened small bowel loops with distended stomach. Findings concerning for SBO vs ileitis. No perforation. Allergies Penicillins Allergy (Unverified 12/13/15 21:06) Unknown - Past Medical/Surgical History -: HTN -: Colon cancer -: s/p colon resection with reanastomosis - Family History Family History: Reviewed- Non-Contributory - Social History Smoking Status: Never smoker Alcohol use: No Place of Residence: Home Review of Systems 10-point ROS is otherwise unremarkable Physical Examination - Physical Exam General: Alert, Moderate distress HEENT: Other (dry mucous membranes), Sclerae nonicteric Respiratory: Clear to auscultation bilaterally, Normal air movement Cardiovascular: No edema, Other (Sinus bradycardia, HR: 50) Capillary refill: <2 Seconds Gastrointestinal: Other (soft, moderate tenderness in R abdomen / periumbilical) Musculoskeletal: No contractures, No erythema Integumentary: No rashes, No significant lesion Neurological: Normal speech, Normal affect - Studies Laboratory Data (last 24 hrs) 12/10/21 13:40: WBC 11.1 H, Hgb 15.5, Hct 45.9, Plt Count 293 12/10/21 13:40: Sodium 137, Potassium 3.8, BUN 16, Creatinine 1.08, Glucose 165 H, Total Bilirubin 0.9, AST 18, ALT 26, Alkaline Phosphatase 57 Assessment and Plan - Advance Directives Does patient have a Living Will: Yes Does patient have a Durable POA for Healthcare: Yes Physician Review Additional Text: Problem List ileitis vs SBO HTN h/o colon cancer s/p resection / reanastomosis patient appears very uncomfortable, dry heaving recommended NGT to LIWS, patient agreeable cipro/flagyl ordered, pt with penicillin allergy cultures obtained patient does not appear septic ileitis vs SBO, h/o colon resection - has risk of adhesions bowel rest, IVF serial abd exams KUB in AM general surgery consulted Code: full Dispo: home, ~2-3 days Time Spent Managing Pts Care (In Minutes): 75
[2021-12-10] MEDS: NA CHLORIDE 0.9% 1,000 ML IV SCH (17:00)
--- NOTE | 2021-12-10 17:02 | RAD REPORT ---
EXAM DESCRIPTION: RAD - Chest Single View - 12/10/2021 4:49 pm CLINICAL HISTORY: NG tube placemnet COMPARISON: Portable December 10 TECHNIQUE: AP portable chest image was obtained 12/10/2021 4:49 pm . FINDINGS: NG tube has been placed. Tip and side port of the catheter are in the proximal stomach. No abnormal bend or kink of the tubing.
[2021-12-10] MEDS: CIPROFLOXACIN 400mg IV 400 MG/200 ML BAG IV SCH (21:00)
[2021-12-11] MEDS: METRONIDAZOLE 500mg IVPB 500 MG/100 ML BAG IV SCH ×4 (00:35→16:47)
[2021-12-11] MEDS: NA CHLORIDE 0.9% 1,000 ML IV SCH ×4 (01:00→18:18)
[2021-12-11 06:38] LABS: Absolute Lymphocytes (CBC) 1.1 K/uL (0.7-4.9); Hematocrit 50.8 % (39.6-49.0); Lymphocytes % 4.3 % (15.3-44.8); MCV 91.9 fL (80-100); MPV 8.7 fL (7.6-11.3); RBC Red Blood Cell Count 5.53 M/uL (4.33-5.43)
--- NOTE | 2021-12-11 06:43 | P.PN ---
Date of Service: 12/11/21 Subjective: feels better since NGT placed and stomach decompressed dry mouth, slight abd distention only urinated once, dark +flatus, no BM feels heart going fast for him - in 80s-90s ROS: 10 point ROS as noted above, otherwise negative Physical exam GEN: Alert, oriented, NAD HEENT: Normal conjunctiva, sclera anicteric, NGT in place CV: Regular rate and rhythm, no edema Pulm: Nonlabored respirations on room air ABD: Soft, mild discomfort in R abdomen Integumentary: No rashes Neuro: Normal speech, normal affect Problem List ileitis vs SBO HTN h/o colon cancer s/p resection / reanastomosis chronic sinus bradycardia much more comfortable NGT to LIWS continue antibiotics - cipro/flagyl WBC up to 20k all cell lines are up, dark urine; pt reports sweating a lot last night; suspect he is dehydrated / heme concentrated cultures obtained ileitis vs SBO, h/o colon resection - has risk of adhesions general surgery consulted KUB without dilated small bowel loops - s/p NGT to LIWS Code: full Dispo: home, ~2-3 days Time Spent Managing Pts Care (In Minutes): 35
[2021-12-11 06:55] LABS: Albumin 3.1 g/dL (3.4-5.0); Bilirubin Total 0.7 mg/dL (0.2-1.0); Magnesium 2.3 mg/dL (1.8-2.4); Potassium 4.2 mmol/L (3.5-5.1); Protein, Total 6.5 g/dL (6.4-8.2)
[2021-12-11] MEDS: ENOXAPARIN 40 MG/0.4 ML SQ SCH (08:27)
[2021-12-11] MEDS: CIPROFLOXACIN 400mg IV 400 MG/200 ML BAG IV SCH ×2 (08:27→20:02)
--- NOTE | 2021-12-11 09:54 | RAD REPORT ---
EXAM DESCRIPTION: RAD - Abdomen 1 View (KUB) - 12/11/2021 9:33 am CLINICAL HISTORY: f/u SBO COMPARISON: Abdomen Pelvis W Contrast dated 12/10/2021 FINDINGS: Prominent, possibly thickened small bowel loops overlying the lower pelvis and right lower quadrant. No dilated small bowel identified . No acute osseous abnormality.Visualized lungs are unre markable.No abnormal calcifications. Moderate colonic stool. NG tube tip overlies the stomach. IMPRESSION: Prominent but nondilated small bowel loops overlying the lower pelvis likely correspondi ng to findings from yesterday's CT. The small bowel does not appear dilated but dilated mostly fluid filled small bowel loops will not be readily apparent on radiography.
--- NOTE | 2021-12-11 10:38 | P.CNS ---
Date of Consult: 12/11/21 Reason for consult: Abdominal pain History of present illness: Patient is a 76-year-old gentleman who presented to the emergency room with acute onset of epigastric abdominal pain associated with nausea and vomiting. Patient continued to have nausea and vomiting with dry heaving yesterday. Patient had a work-up done and NG tube placed. Patient is passing gas. Patient currently feels better with less pain and no nausea or vomiting. Patient denies sore throat, runny nose, cough, headaches, dizziness, chest pain, fever or chills. Last bowel movement was yesterday. Patient has a history of colon cancer in 2007 which was treated with laparoscopic colectomy in [place]. Patient has been cancer free since that time. Review of systems: Otherwise unremarkable Past medical history: Hypertension and colon cancer Past surgical history: Laparoscopic colectomy Allergies: Penicillin Social history: Patient does not smoke or drink alcohol Family history: Noncontributory Vital signs: Stable, afebrile Physical exam: Awake, alert and oriented x4 Head and neck exam: No mass Chest: Clear Heart: S1-S2 Abdomen: Soft, minimally distended, hypoactive bowel sounds, minimal diffuse tenderness with no evidence of peritonitis Extremity: Neurovascular intact, nontender Neuro: Nonfocal Diagnostic data: White count yesterday was 11.1 but today is 24.5 with a left shift. CT of the abdomen pelvis reviewed showed obstruction versus ileitis versus internal herniation. The blood vessel in the mesentery were patent but there was edema in the mesentery. X-ray done today reveals no dilated small bowel. Assessment: Ileitis versus obstruction in a patient with previous surgery. Likely cause is adhesions. There is no evidence of recurrence of the cancer. Plan/recommendation: N.p.o., NG tube, IV fluids, IV antibiotics and serial abdominal exam. We will repeat the abdominal x-ray tomorrow morning. If the patient does not improve with conservative treatment, patient will require surgical intervention. Plan of care discussed in detail with the patient, family and Dr. Piper. We will follow this patient very closely at this time. CC:
[2021-12-11] MEDS ORDERED: NA CHLORIDE 0.9% 500 ML IV ONE (12:00)
--- NOTE | 2021-12-11 17:29 | EKG ---
Test Date: 2021-12-10 Test Time: 13:29:14 Cosmetologist Apprentice: MARGARITA MEASUREMENT RESULTS: Intervals: Rate: 44 FL: 218 QRSD: 108 QT: 470 QTc: 401 [place]: P: 62 FL: 218 QRS: 6 T: 55 INTERPRETIVE STATEMENTS: Marked sinus bradycardia with 1st degree AV block Possible Anterior infarct, age undetermined Abnormal ECG Compared to ECG 10/26/2021 18:50:59 No significant changes Electronically Signed On 12-11-21 17:27:26 CDT by Zeyad Martins
[2021-12-12] MEDS: NA CHLORIDE 0.9% 1,000 ML IV SCH ×4 (03:00→20:22)
[2021-12-12] MEDS: METRONIDAZOLE 500mg IVPB 500 MG/100 ML BAG IV SCH ×3 (03:00→16:11)
[2021-12-12 03:51] LABS: Absolute Lymphocytes (CBC) 1.8 K/uL (0.7-4.9); Hematocrit 41.1 % (39.6-49.0); Lymphocytes % 7.1 % (15.3-44.8); MCV 90.5 fL (80-100); MPV 8.8 fL (7.6-11.3); RBC Red Blood Cell Count 4.54 M/uL (4.33-5.43)
[2021-12-12 04:07] LABS: Albumin 2.8 g/dL (3.4-5.0); Bilirubin Total 0.6 mg/dL (0.2-1.0); Magnesium 2.1 mg/dL (1.8-2.4); Potassium 3.7 mmol/L (3.5-5.1); Protein, Total 5.8 g/dL (6.4-8.2)
--- NOTE | 2021-12-12 06:27 | P.PN ---
Date of Service: 12/12/21 Subjective: s/p OR - lysis of adhesions / internal hernia doing well, NGT in place minimal pain ROS: 10 point ROS as noted above, otherwise negative Physical exam GEN: Alert, oriented, NAD HEENT: Normal conjunctiva, sclera anicteric, NGT in place CV: Regular rate and rhythm, no edema Pulm: Nonlabored respirations on room air ABD: Soft, mild discomfort Neuro: Normal speech, normal affect Problem List SBO s/p lysis of adhesions (12/12) HTN h/o colon cancer s/p resection / reanastomosis chronic sinus bradycardia KUB worse this morning NGT to LIWS continue antibiotics - cipro/flagyl leukocytosis general surgery consulted now s/p OR with lysis of adhesions pain meds as needed monitor in ICU overnight Code: full Dispo: home, ~2-3 days Time Spent Managing Pts Care (In Minutes): 35
[2021-12-12] MEDS: ENOXAPARIN 40 MG/0.4 ML SQ SCH (07:53)
[2021-12-12] MEDS: CIPROFLOXACIN 400mg IV 400 MG/200 ML BAG IV SCH ×2 (07:53→20:21)
--- NOTE | 2021-12-12 08:49 | RAD REPORT ---
EXAM DESCRIPTION: RAD - Abdomen W Erect - 12/12/2021 8:16 am CLINICAL HISTORY: Follow-up small bowel obstruction COMPARISON: Abdomen 1 View (KUB) dated 12/11/2021; Abdomen Pelvis W Contrast dated 12/10/2021 TECHNIQUE: Supine and upright views of the abdomen were obtained. FINDINGS: NG tube remains in the proximal stomach with the stomach decompressed. Air and stool are p resent in nondilated, mostly decompressed colon. Multiple dilated small bowel loops are present more prominent than on prior imaging. No pneumatosis i s seen. No free air. IMPRESSION: Worsening small bowel obstruction pattern.
--- NOTE | 2021-12-12 10:08 | P.PN ---
Date of Service: 12/12/21 Subjective: Patient is awake alert and feels a little better. Objective: Vital signs stable, afebrile, NG [id number] cc, white count24.7 and the abdominal x-ray shows worsening of the small bowel obstruction pattern. Abdomen: Soft, distended, tenderness on the right side of the abdomen with rebound. Assessment: Small bowel obstructionetiology unclear but internal herniation or adhesions are likely the cause. Plan: Continue n.p.o., IV fluids, NG tube, IV antibiotics. Exploratory laparotomy, possible bowel resection and possible ostomy. Patient and understand risks, benefits and alternatives and agreed to procedure. CC:
[2021-12-12] MEDS ORDERED: propofoL 200 MG/20 ML VIAL IV ONE (10:34)
[2021-12-12] MEDS ORDERED: LIDOCAINE 2% MPF 5 ML VIAL ONE (10:34)
[2021-12-12] MEDS ORDERED: ROCURONIUM 50 MG/5 ML VIAL IV ONE (10:35)
[2021-12-12] MEDS ORDERED: FENTANYL CITR 100 MCG/2 ML ONE ×2 (10:36→11:43)
[2021-12-12] MEDS ORDERED: Ringers Lactate 1,000 ML IV ONE (10:37)
[2021-12-12] MEDS ORDERED: SUCCINYLCHOLINE 20 MG/ML (10 ML) IV ONE (10:40)
[2021-12-12] MEDS ORDERED: KETOROLAC 30 MG/ML INJ ONE (11:39)
[2021-12-12] MEDS ORDERED: ONDANSETRON 4 MG/2 ML VIAL ONE (11:39)
[2021-12-12] MEDS ORDERED: dexAMETHasone 10 MG/ML VIAL ONE (11:40)
[2021-12-12] MEDS ORDERED: GLYCOPYRROLATE 0.2 MG/ML SYR ONE (11:48)
[2021-12-12] MEDS ORDERED: NEOSTIGMINE 1 MG/ML -10 ML VIAL ONE (11:49)
[2021-12-12] MEDS ORDERED: ALBUTEROL 2.5 MG/3 ML NEB SOL ONE (12:31)
[2021-12-12] MEDS ORDERED: SODIUM CHLORIDE 0.9% 10ML INJ IV PRN (12:40)
--- NOTE | 2021-12-12 12:46 | P.OP ---
Date of Service: 12/12/21 Preop diagnosis: Small bowel obstruction Postop diagnosis: Same, secondary to internal herniation Procedure performed: Exploratory laparotomy and lysis of adhesion Surgeon: Ge Nolen MD Corporate Executive Chef: Thelma BENÍTEZ Estimated blood loss: Minimal Specimen: None Findings: As above Anesthesia: General Complications: None Drains: None Fluids and blood products: None applicable Disposition: Recovery room Operative note: Patient brought to the OR and placed in supine position. General anesthesia begun. Patient was prepped and draped in the usual sterile fashion. 20 blade was used to make a midline incision from above the umbilicus to just below the umbilicus. Subcutaneous tissue divided and bleeding controlled cautery. Fascia identified and divided. Peritoneal cavity entered with sharp and blunt dissection. Approximately half a liter of serosanguineous fluid aspirated from the peritoneal cavity. Exploratory laparotomy revealed the following findings: GE junction was normal, the duodenal sweep was normal, small bowel starting at the ligament of Treitz was dilated to the mid ileum. At this point, there was an omental adhesion causing an internal herniation of the ileum. This was released with LigaSure. The bowel involved was approximately 12 inches. It was red and edematous but had motility. The mesentery was thickened. There was no evidence of ischemia or necrosis. Remainder of the terminal ileum was within normal limits. The ascending colon, transverse colon, descending colon, sigmoid colon and rectum were within normal limits. The liver was within normal limits. There were no masses palpated on the peritoneal surfaces. The small bowel that was involved in the internal hernia was monitored and it slowly improved--better motility and color. Abdomen was irrigated effluent was clear. There was no evidence of bleeding or bowel injury appreciated. After the counts were correct, the midline fascia was closed with #2 nylon. Subcutaneous wounds was irrigated and bleeding controlled with cautery. [place] used to close skin. Sterile dressing applied and patient awakened and taken to recovery room in good general condition. CC:
[2021-12-12] MEDS ORDERED: NA CHLORIDE 0.9% 1,000 ML ONE (12:55)
[2021-12-13] MEDS: METRONIDAZOLE 500mg IVPB 500 MG/100 ML BAG IV SCH ×3 (00:29→17:23)
[2021-12-13 04:51] LABS: Absolute Lymphocytes (CBC) 1.2 K/uL (0.7-4.9); Hematocrit 34.9 % (39.6-49.0); Lymphocytes % 7.5 % (15.3-44.8); MCV 90.3 fL (80-100); MPV 8.4 fL (7.6-11.3); RBC Red Blood Cell Count 3.87 M/uL (4.33-5.43)
[2021-12-13 05:08] LABS: Albumin 2.6 g/dL (3.4-5.0); Bilirubin Total 0.5 mg/dL (0.2-1.0); Magnesium 2.3 mg/dL (1.8-2.4); Phosphorus 2.2 mg/dL (2.5-4.9); Potassium 3.6 mmol/L (3.5-5.1); Protein, Total 5.6 g/dL (6.4-8.2)
[2021-12-13] MEDS: NA CHLORIDE 0.9% 1,000 ML IV SCH ×4 (05:13→20:33)
--- NOTE | 2021-12-13 06:30 | P.PN ---
Date of Service: 12/13/21 Subjective: improving +flatus x2 ambulated with PT soreness in abdomen ROS: 10 point ROS as noted above, otherwise negative Physical exam GEN: Alert, oriented, NAD HEENT: Normal conjunctiva, sclera anicteric, NGT in place CV: Regular rate and rhythm, no edema Pulm: Nonlabored respirations on room air ABD: mild discomfort with palpation Neuro: Normal speech, normal affect Problem List SBO s/p lysis of adhesions (12/12) HTN h/o colon cancer s/p resection / reanastomosis chronic sinus bradycardia s/p lysis of adhesions doing well post-operatively leukocytosis downtrending NGT to LIWS continue antibiotics - cipro/flagyl pain meds as needed ok to transfer to floor sips / ice chips ok Code: full Dispo: home, ~3 days Time Spent Managing Pts Care (In Minutes): 35
[2021-12-13] MEDS ORDERED: KCL 20 MEQ/100 mL IVPB 20 MEQ/100 ML BAG IV SCH (07:30)
--- NOTE | 2021-12-13 08:07 | P.PN ---
Date of Service: 12/13/21 Subjective: Patient is awake alert and in no pain. Patient did pass gas. Patient has no nausea or vomiting Objective: Vital signs stable, afebrile, NG [id number] cc , white count15.4 and urine output is 400 cc Abdomen: Soft, distended, diminished bowel sounds, incisional tenderness with dressing that is clean and dry Assessment: Status post exploratory laparotomy and lysis of adhesion for internal herniation secondary to an adhesive band Plan: Continue n.p.o., IV fluids, NG tube, IV antibiotics. Encourage ambulation with physical therapy, incentive spirometry, DVT prophylaxis. DC Jauregui and transfer patient to floor. Patient is clinically doing well. CC:
[2021-12-13] MEDS: ENOXAPARIN 40 MG/0.4 ML SQ SCH (08:35)
[2021-12-13] MEDS: CIPROFLOXACIN 400mg IV 400 MG/200 ML BAG IV SCH ×2 (08:35→20:34)
[2021-12-13] MEDS: PANTOPRAZOLE 40 MG INJ IVP SCH (08:36)
[2021-12-13] MEDS: HYDROMORPHONE HCL 1 MG/ML INJ IV PRN ×2 (10:50→21:12)
[2021-12-14] MEDS: METRONIDAZOLE 500mg IVPB 500 MG/100 ML BAG IV SCH ×3 (01:16→17:01)
[2021-12-14 05:21] LABS: Absolute Lymphocytes (CBC) 1.5 K/uL (0.7-4.9); Hematocrit 34.3 % (39.6-49.0); Lymphocytes % 18.5 % (15.3-44.8); MCV 91.7 fL (80-100); MPV 8.6 fL (7.6-11.3); RBC Red Blood Cell Count 3.74 M/uL (4.33-5.43)
[2021-12-14 05:41] LABS: Albumin 2.4 g/dL (3.4-5.0); Bilirubin Total 0.4 mg/dL (0.2-1.0); Magnesium 2.2 mg/dL (1.8-2.4); Potassium 3.4 mmol/L (3.5-5.1); Protein, Total 5.3 g/dL (6.4-8.2)
[2021-12-14] MEDS: NA CHLORIDE 0.9% 1,000 ML IV SCH ×2 (05:48→17:01)
[2021-12-14 06:21] VITALS: BMI 29.1
[2021-12-14] MEDS: KCL 20 MEQ/100 mL IVPB 20 MEQ/100 ML BAG IV SCH ×2 (07:41→10:00)
[2021-12-14] MEDS: CIPROFLOXACIN 400mg IV 400 MG/200 ML BAG IV SCH ×2 (08:39→21:24)
[2021-12-14] MEDS: ENOXAPARIN 40 MG/0.4 ML SQ SCH (08:39)
[2021-12-14] MEDS: PANTOPRAZOLE 40 MG INJ IVP SCH (08:40)
[2021-12-14] MEDS ORDERED: POTASSIUM 25 MEQ EFFERV TAB PO ONE ×2 (12:07→21:00)
--- NOTE | 2021-12-14 14:45 | P.PN ---
Date of Service: 12/14/21 Subjective: Patient is awake alert and in no pain. Patient is passing gas. Patient has no nausea or vomiting Objective: Vital signs stable, afebrile, white count is normal Abdomen: Soft, non-distended, positive bowel sounds, minimal incisional tenderness with dressing that is clean and dry Assessment: Status post exploratory laparotomy and lysis of adhesion for internal herniation secondary to an adhesive band Plan: Clamp NG tube and begin clear liquid diet. Encourage ambulation, incentive spirometry and DVT prophylaxis. Patient is clinically progressing well. Likely discharge in 24 to 48 hours. CC:
--- NOTE | 2021-12-14 16:34 | P.PN ---
Subjective Date of Service: 12/14/21 Chief Complaint: SBO vs ileitis Patient has no new complaint. He states he has been having flatus. He has been tolerating ice chips. He denies any abdominal pain Physical Examination - Vital Signs Temperature: 97.0 F Blood Pressure: 143/64 Pulse: 68 Respirations: 20 Pulse Ox (%): 96 Assessment And Plan - Plan Physical exam GEN: Alert, oriented, NAD HEENT:Sclera anicteric, NGT in place CV: Regular rate and rhythm, no edema Pulm: Nonlabored respirations on room air ABD: Normal bowel sounds, nontender to palpation Neuro: Normal speech, normal affect Problem List SBO s/p lysis of adhesions (12/12) HTN h/o colon cancer s/p resection / reanastomosis chronic sinus bradycardia s/p lysis of adhesions He is passing flatus. leukocytosis resolved Clamp tube today and start clear liquid diet per Dr. Quiroz continue antibiotics - cipro/flagyl pain meds as needed ok to transfer to floor
[2021-12-14] MEDS: HYDROMORPHONE HCL 1 MG/ML INJ IV PRN (18:54)
[2021-12-14 20:36] VITALS: O2SAT 94
[2021-12-14] MEDS ORDERED: POTASSIUM CL SA 10 MEQ TAB PO ONE (21:00)
[2021-12-15] MEDS: METRONIDAZOLE 500mg IVPB 500 MG/100 ML BAG IV SCH ×2 (00:14→09:21)
[2021-12-15] MEDS: NA CHLORIDE 0.9% 1,000 ML IV SCH (01:28)
[2021-12-15 04:43] LABS: Absolute Lymphocytes (CBC) 1.3 K/uL (0.7-4.9); Hematocrit 34.3 % (39.6-49.0); Lymphocytes % 15.7 % (15.3-44.8); MCV 90.6 fL (80-100); MPV 8.7 fL (7.6-11.3); RBC Red Blood Cell Count 3.79 M/uL (4.33-5.43)
[2021-12-15 05:03] LABS: Potassium 3.9 mmol/L (3.5-5.1)
[2021-12-15] MEDS ORDERED: POTASSIUM 25 MEQ EFFERV TAB PO ONE (09:00)
[2021-12-15] MEDS: ENOXAPARIN 40 MG/0.4 ML SQ SCH (09:21)
[2021-12-15] MEDS: CIPROFLOXACIN 400mg IV 400 MG/200 ML BAG IV SCH (09:21)
[2021-12-15] MEDS: PANTOPRAZOLE 40 MG INJ IVP SCH (09:22)
--- NOTE | 2021-12-15 10:01 | P.PN ---
Date of Service: 12/15/21 Subjective: Patient is awake alert and in no pain. Patient had a bowel movement and is tolerating regular diet. Objective: Vital signs stable, afebrile, white count is normal Abdomen: Soft, non-distended, positive bowel sounds, minimal incisional tenderness with dressing that is clean and dry Assessment: Status post exploratory laparotomy and lysis of adhesion for internal herniation secondary to an adhesive band Plan: Patient cleared from surgery standpoint for discharge. Discharge instructions given. Cipro, Flagyl and Tylenol 3 called into patient's pharmacy. Patient to follow-up with me in 1 week. CC:
[2021-12-15 12:35] VITALS: BP 155/75; TEMP 99.4
--- NOTE | 2021-12-15 13:00 | P.DS ---
Admission Date: 12/10/21 Discharge Date: 12/15/21 Disposition: ROUTINE DISCHARGE Discharge Condition: GOOD Reason for Admission: SBO vs ileitis Brief History of Present Illness: 76yo M , PMH: HTN, colon cancer s/p resection presented to the ED due to progressively worsening abdominal pain, associated with nausea/vomiting. Last BM was on the morning of of the day of presentation. He stated has never experienced anything like this before. He has a remote h/o colon cancer s/p 12 inches of colon resection, no recurrence. Last c-scope was ~2 yrs ago, a few polyps were removed. In the ED, patient had mild leukocytosis at 11, CT abdomen and pelvis showed distened small bowel loops with distended stomach. Findings concerning for SBO vs ileitis. No perforation. Patient admitted for further management. Hospital Course: Problem List SBO s/p lysis of adhesions (12/12) HTN h/o colon cancer s/p resection / reanastomosis chronic sinus bradycardia General surgery-Dr. Nolen consulted s/p lysis of adhesions done Patient was monitored during the postop period. leukocytosis resolved. NG tube subsequently removed,and patient had a bowel movement. He tolerated clear liquid diet. He was treated empirically with IV ciprofloxacin and Flagyl Patient clinically improved and deemed stable for discharge per General surgery- Dr. Nolen. He will follow with Dr. Nolen as an outpatient within 1 week. Vital Signs/Physical Exam: Temp Pulse Resp BP Pulse Ox 99.4 F 70 18 155/75 H 98 12/15/21 12:00 12/15/21 12:00 12/15/21 12:00 12/15/21 12:00 12/15/21 12:00 General: Alert, In no apparent distress HEENT: Mucous membr. moist/pink Neck: JVD not distended Respiratory: Clear to auscultation bilaterally, Normal air movement Cardiovascular: No edema, Regular rate/rhythm, Normal S1 S2 Gastrointestinal: Normal bowel sounds, Soft and benign, Non-distended, No tenderness Integumentary: No rashes Neurological: Normal strength at 5/5 x4 extr Laboratory Data at Discharge: WBC 8.5 K/uL (4.3-10.9) 12/15/21 04:11 Hgb 11.8 g/dL (13.6-17.9) L 12/15/21 04:11 Hct 34.3 % (39.6-49.0) L 12/15/21 04:11 Plt Count 176 K/uL (152-406) 12/15/21 04:11 Sodium 138 mmol/L (136-145) 12/15/21 04:11 Potassium 3.9 mmol/L (3.5-5.1) 12/15/21 04:11 BUN 17 mg/dL (7-18) 12/15/21 04:11 Creatinine 0.58 mg/dL (0.55-1.3) 12/15/21 04:11 Glucose 96 mg/dL (74-106) 12/15/21 04:11 Phosphorus 2.2 mg/dL (2.5-4.9) L 12/13/21 04:40 Magnesium 2.2 mg/dL (1.8-2.4) 12/14/21 04:59 Total Bilirubin 0.4 mg/dL (0.2-1.0) 12/14/21 04:59 AST 15 U/L (15-37) 12/14/21 04:59 ALT 16 U/L (12-78) 12/14/21 04:59 Alkaline Phosphatase 32 U/L (45-117) L 12/14/21 04:59 Home Medications: Chlorthalidone 12.5 mg PO DAILY 12/11/21 Losartan Potassium 50 mg PO BEDTIME 12/11/21 Rosuvastatin [Crestor*] 5 mg PO BEDTIME 12/11/21 Ciprofloxacin HCl [Cipro 500 MG Tablet] 500 mg PO BID #10 tab 12/15/21 metroNIDAZOLE [Flagyl] 500 mg PO Q8H #15 tablet 12/15/21 New Medications: Ciprofloxacin HCl [Cipro 500 MG Tablet] 500 mg PO BID #10 tab metroNIDAZOLE [Flagyl] 500 mg PO Q8H #15 tablet Physician Discharge Instructions: Remove dressing in a.m. and shower Keep wound clean and dry Abdominal binder as instructed Incentive spirometry as instructed Cipro, Flagyl and Tylenol 3 called into patient's pharmacy Diet: AHA Activity: No lifting more than 10 lbs Followup: Ned Davis MD [Primary Care Provider] - Ge Nolen MD [ACTIVE - CAN ADMIT] - 1 Week Time spent managing pt's care (in minutes): 35
== END 2021-12-15 15:44 | disposition home or self-care (01) | DRG 337 ==
LOC: ER 12:35 → ERHOLD 16:49 → 2ND 19:41 → 3RD-ICU 12-12 13:42 → 4TH 12-14 17:10
PROVIDERS: ADMIT Hospitalist; ATTEND Hospitalist
PROC: 0DNB0ZZ Release Ileum, Open Approach (ICD-10-PCS; principal; 2021-12-12 11:00)
DX: K56.50 Intestinal adhesions [bands], unspecified as to partial versus complete obstruction (principal); I10 Essential (primary) hypertension; E78.5 Hyperlipidemia, unspecified; R00.1 Bradycardia, unspecified; D72.829 Elevated white blood cell count, unspecified; Z85.038 Personal history of other malignant neoplasm of large intestine; Z90.49 Acquired absence of other specified parts of digestive tract; Z88.0 Allergy status to penicillin; Z20.822 Contact with and (suspected) exposure to COVID-19
CPT/HCPCS: 36415; 71045; 74018; 74019; 74177; 80048; 80053; 80076; 82947; 83735; 84100; 84132; 84145; 84484; 85025; 87040; 93005; 94010; 94760; 96361; 96365; 96375; 97110; 97116; 97161; 97530; 99285; C9113; J0330; J0744; J1100; J1170; J1650; J2405; J2704; J2710; J3010; J3480; J3490; J7030; J7040; J7120; Q9967; U0003